=== PATIENT | male | born 1970 | race Caucasian/White ===

== ENCOUNTER 2019-07-11 19:59 | Inpatient (IN) | payer OTHER ==
[~2019-07-11] VITALS: Ht 182.9 cm; Wt 124.3 kg
[2019-07-11] MEDS ORDERED: DEXTROSE 50% SYRINGE 50 ML IV PRN ×2 (20:15→22:00)
[2019-07-11] MEDS ORDERED: HYDRALAZINE HCL 25 MG TAB PO PRN ×2 (20:15→22:00)
[2019-07-11] MEDS ORDERED: MORPHINE SULFATE INJ 4 MG/ML INJ 1ML IV PRN ×2 (20:30→22:00)
[2019-07-11 20:55] LABS: BASOPHILS # (AUTO) 0.1 (0.0-0.1); BASOPHILS % 0.7 % (0.0-1.0); EOSINOPHILS # (AUTO) 0.1 (0.0-0.4); EOSINOPHILS % 1.7 % (0.0-6.0); HEMATOCRIT 46.7 % (38.2-49.6); HEMOGLOBIN 16.3 g/dL (14.0-18.0); LYMPHOCYTES # (AUTO) 2.3 (1.0-3.2); LYMPHOCYTES % 32.6 % (18.0-39.1); MEAN CORPUSCULAR HEMOGLOBIN 31.7 pg (28-32); MEAN CORPUSCULAR HGB CONC 34.9 g/dL (31-35); MEAN CORPUSCULAR VOLUME 90.9 fL (81-99); MONOCYTES # (AUTO) 0.7 (0.2-0.8); NEUTROPHILS # (AUTO) 3.9 (2.1-6.9); NEUTROPHILS % 54.7 % (38.7-80.0); PLATELET COUNT 180 x10e3/uL (140-360); RED BLOOD COUNT 5.14 x10e6/uL (4.3-5.7)
[2019-07-11] MEDS ORDERED: INSULIN LISPRO 100 UNIT/1 ML 3ML VIAL SQ SCH (21:00)
[2019-07-11] MEDS ORDERED: HYDRALAZINE HCL 25 MG TAB ONE (21:00)
[2019-07-11 21:05] VITALS: BP 162/97
[2019-07-11 21:13] LABS: ALANINE AMINOTRANSFERASE 99 IU/L (0-55); ALBUMIN 3.9 g/dL (3.5-5.0); ALBUMIN/GLOBULIN RATIO 1.1 (0.8-2.0); ALKALINE PHOSPHATASE 102 IU/L (40-150); ANION GAP 14.8 mmol/L (8-16); BLOOD UREA NITROGEN 11 mg/dL (7-26); BUN/CREATININE RATIO 11 (6-25); CALCIUM 9.7 mg/dL (8.4-10.2); CARBON DIOXIDE 26 mmol/L (22-29); CHLORIDE 97 mmol/L (98-107); CREATININE, SERUM 0.98 mg/dL (0.72-1.25); EST GLOMERULAR FILTRATION RATE > 60 ML/MIN (60-); GLUCOSE 224 mg/dL (74-118); POTASSIUM 3.8 mmol/L (3.5-5.1); SODIUM 134 mmol/L (136-145)
[2019-07-11 21:14] LABS: CHOL/HDL RATIO 4.1 (3.9-4.7)
[2019-07-11 21:33] LABS: THYROID STIMULATING HORMONE 5.888 uIU/mL (0.350-4.940)
--- NOTE | 2019-07-11 21:35 | NUR ---
Patient received via stretcher from ER. AAO x 4. Admission history obtained. Initial physical assessment conducted. Patient had no complaints of pain. Respirations even and non-labored. Patient oriented to room, call light, visiting hours and plan of care. Fall precautions implemented. Patient instructed to call for assistance when needed. Call light within reach.
[2019-07-11 22:00] VITALS: BP 162/97
--- NOTE | 2019-07-11 22:15 | NUR ---
Patient off floor for CT/ABD/PEL
[2019-07-11] MEDS ORDERED: SODIUM CHLORIDE 0.9% 50ML 50 ML ONE (22:20)
[2019-07-11] MEDS ORDERED: IOPAMIDOL 370 MG/ML 200 ML INFUS..BTL INJ ONE (22:20)
[2019-07-11] MEDS ORDERED: HUMALOG100 UNIT/1 SQ (22:22)
[2019-07-11] MEDS ORDERED: AMBIEN10 MG PO (22:22)
[2019-07-11] MEDS: INSULIN LISPRO 100 UNIT/1 ML 3ML VIAL SQ SCH (22:24)
--- NOTE | 2019-07-11 22:36 | NUR ---
Patient back to floor from CT/ABD/PEL.
--- NOTE | 2019-07-11 23:08 | Diagnostic Imaging Report ---
EXAM: CT Abdomen and Pelvis WITHOUT and WITH contrast INDICATION: Abdominal pain, right mid back pain COMPARISON: None. TECHNIQUE: Abdomen and pelvis were scanned utilizing a multidetector helical scanner from the lung base to the pubic symphysis before and after administration of IV contrast. Coronal and sagittal reformations were obtained. Routine protocol was performed. Scan was performed when during portal venous phase. IV CONTRAST: 100 mL of Isovue 370 ORAL CONTRAST: None COMPLICATIONS: None RADIATION DOSE: Total DLP: And 1771 mGy*cm Estimated effective dose: (DLP x 0.015 x size factor) mSv CTDIvol has been reviewed. It is below the limits set by the Radiation Protocol Committee (RPC). Dose modulation, iterative reconstruction, and/or weight based adjustment of the mA/kV was utilized to reduce the radiation dose to as low as reasonably achievable. FINDINGS: LINES and TUBES: None. LOWER THORAX: Bibasilar subsegmental atelectasis. HEPATOBILIARY: Diffuse decreased hepatic attenuation No focal hepatic lesions. The liver is mildly enlarged measures 18.7 cm in craniocaudal dimension and the right midclavicular line. No biliary ductal dilation. GALLBLADDER: No radio-opaque stones or sludge. No wall thickening. SPLEEN: No splenomegaly. PANCREAS: No focal masses or ductal dilatation. ADRENALS: No adrenal nodules KIDNEYS/URETERS: Kidneys enhance symmetrically. No hydronephrosis. No cystic or solid mass lesions. No stones. GI TRACT: Mild wall thickening; slight edema in the gastric antrum. No abnormal distention or evidence of bowel obstruction. Intact surgical changes of sleeve gastrectomy. Appendix is normal. Peripherally calcified epiploic appendage along the sigmoid colon. (Series 3 image 65). PELVIC ORGANS/BLADDER: Unremarkable. LYMPH NODES: No lymphadenopathy. VESSELS: Unremarkable. PERITONEUM / RETROPERITONEUM: No free air or fluid. BONES: Degenerative changes in the spine hips and pelvis.. SOFT TISSUES: Calcified granulomas in the left gluteal subcutaneous adipose. Tiny fat-containing umbilical hernia. IMPRESSION: Findings suggestive of mild antral gastritis. Hepatomegaly with hepatic steatosis. Intact postsurgical changes of partial gastrectomy. Signed by: Roosevelt Gallegos DO on 07/11/2019 11:04 PM
[2019-07-12] VITALS (9 sets, daily range): BP systolic 106–148; BP diastolic 71–92
[2019-07-12] MEDS: ZOLPIDEM TARTRATE 10 MG TAB PO SCH (00:19)
[2019-07-12] MEDS: MORPHINE SULFATE 2 MG/ML SYR 1ML IV PRN ×4 (01:59→20:21)
[2019-07-12 05:59] LABS: CHOL/HDL RATIO 4.3 (3.9-4.7)
--- NOTE | 2019-07-12 07:00 | NUR ---
Shift report given to oncoming nurse.
--- NOTE | 2019-07-12 07:06 | NUR ---
Received patient lying in bed with eyes open. Respiration even and unlabored without SOB. Call light in reach.
[2019-07-12] MEDS: INSULIN LISPRO 100 UNIT/1 ML 3ML VIAL SQ SCH ×3 (08:07→20:20)
[2019-07-12] MEDS ORDERED: PANTOPRAZOLE 40 MG 10ML VIAL IV SCH ×2 (09:00)
[2019-07-12] MEDS ORDERED: INSULIN GLARGINE 100 UNITS/ML VIAL SQ ONE (09:30)
--- NOTE | 2019-07-12 14:25 | History and Physical ---
CHIEF COMPLAINT: Severe abdominal pain, nausea, and vomiting. HISTORY OF PRESENT ILLNESS: The patient is a 49-year-old obese male with uncontrolled diabetes. The patient's glycohemoglobin A1c of 11.9. The patient also having significant abdominal pain on the right side, not associated with cough, but more of a burning sensation and pain, worse when the patient eats. The patient had some pain for the past week, did not improve. The patient is now admitted for further evaluation and treatment. PAST MEDICAL HISTORY: Gastric sleeve, diabetes type 2 uncontrolled, hypertension, and obesity. PAST SURGICAL HISTORY: Gastric sleeve. SOCIAL HISTORY: The patient does not smoke or use alcohol. No regular drug. ALLERGIES: TO NO KNOWN ALLERGIES. HOME MEDICATIONS: None. PHYSICAL EXAMINATION: VITAL SIGNS: Temperature is 98, blood pressure 125/84, pulse is 80, and respirations 18. GENERAL: The patient is not in acute distress. He is awake. HEENT: Normocephalic and atraumatic. Pupils reactive. Anicteric. NECK: Supple grossly. PULMONARY: Clear. CARDIOVASCULAR: Regular rate and rhythm. ABDOMEN: Tenderness with some guarding, non-distention. EXTREMITIES: No cyanosis or edema. NEUROLOGIC: No gross focal deficit. LABORATORY DATA: Sodium 134, potassium 3.8, chloride 97, bicarb 26, BUN 11, creatinine 0.9, and glucose 224. WBC 7, hemoglobin 16, hematocrit 47, and platelets 180. CT scan of the abdomen and pelvis that was done showed that the patient has suggestive of antral gastritis. Hepatomegaly with hepatic steatosis. Intact postsurgical changes of partial gastrectomy. IMPRESSION: 1. Uncontrolled diabetes with glycohemoglobin A1c of 11.9. 2. Hypertensive urgency, much improved with medication. 3. Abdominal pain with multiple factors. First, the patient may have a nonfunctional gallbladder including his uncontrolled diabetes and possible neuropathy. 4. Possibility of gastroparesis inducing pain especially after eating. PLAN: Consultation with . Dr. Andre Clark for possible EGD. We will get a HIDA scan of the gallbladder and the gastric emptying test. The patient will need EGD whether in outpatient pending upon evaluation by Gastroenterology. MD EDITH Whitaker/ROLF /[id number]
[2019-07-12] MEDS ORDERED: INSULIN LISPRO 100 UNIT/1 ML 3ML VIAL SQ SCH (15:00)
--- NOTE | 2019-07-12 16:45 | NUR ---
Transported patient for HIDA scan at this time.
--- NOTE | 2019-07-12 17:10 | NUR ---
Report given to cage shift manager. Patient awake, alert. Respiration even and unlabored without SOB. Call light in reach.
--- NOTE | 2019-07-12 18:30 | NUR ---
Patient is back from HIDA scan. Respiration even and unlabored without SOB. Call light in reach
--- NOTE | 2019-07-12 19:18 | NUR ---
Report given to cnc machinist 2nd shift. Patient lying in bed with eyes open. Respiration even and unlabored without SOB. Call light in reach.
--- NOTE | 2019-07-12 19:23 | NUR ---
PT IS RESTING IN BED WITH SON AT BEDSIDE. RESPIRATION IS EVEN AND UNLABORED, NO DISTRESS NOTED. BED IN THE LOWEST POSITION, LOCKED, AND CALL LIGHT WITHIN REACH. WILL CONTINUE TO MONITOR.
--- NOTE | 2019-07-12 19:33 | Diagnostic Imaging Report ---
Hepatobiliary Scan with Gallbladder Ejection Fraction Clinical information: 49 M with RUQ abdominal pain and persistent vomiting x 3 weeks. Technique: Following intravenous administration of 6.2 millicuries of Tc-99m mebrofenin, dynamic images of the abdomen in the anterior projection were obtained through 60 minutes. Sincalide (CCK analog) 2.5 micrograms was administered intravenously over 30 minutes with additional imaging for determination of gallbladder ejection fraction. Discussion: Perfusion of the liver is normal. Extraction of tracer by the liver parenchyma is normal. Tracer appears promptly within the biliary tract. The gallbladder begins to fill by 6 minutes post injection of tracer and fills adequately. Tracer is seen in the small bowel during the sincalide infusion. The gallbladder ejection fraction with sincalide is 2% (normal greater than 40%). Impression: 1. Filling of the gallbladder excludes acute cystic duct obstruction/acute cholecystitis. 2. The decreased gallbladder ejection fraction of 2% supports the clinical diagnosis of chronic cholecystitis/gallbladder dyskinesia. Signed by: Dr. Judith Pierre M.D. on 07/12/2019 7:29 PM
[2019-07-13] MEDS: ZOLPIDEM TARTRATE 10 MG TAB PO SCH ×2 (00:12→23:18)
--- NOTE | 2019-07-13 00:52 | Consultation ---
DATE OF CONSULTATION: 07/12/2019 GI consultation. CONSULTING PHYSICIAN: Christopher Carmona M.D. REASON FOR CONSULT: Intermittently persistent right upper quadrant and mid epigastric pain for more than a week. HISTORY OF PRESENTING ILLNESS: This 49-year-old white male with a past medical history of morbid obesity status post gastric sleeve surgery done by Dr. Crowe, in [facility] in 2012. This resulted him to have at least 40-60 pounds weight loss. The patient also has some cervical disk disease. He has had cervical fusion in the past. The patient is suffering from chronic back pain. He takes ibuprofen 4-5 pills 3-4 times daily for many months. He is now coming with intermittently persistent midepigastric and right upper quadrant pain. There is a concern for a nonfunctional gallbladder. The patient underwent a HIDA scan today. Result is pending. Denies any lower GI symptoms. No associated nausea or vomiting. No weight loss. REVIEW OF SYSTEMS: Twelve point system reviewed, symptomatology is limited to GI system. PAST MEDICAL HISTORY: Type 2 diabetes, hypertension, obesity. PAST SURGICAL HISTORY: Gastric sleeve surgery. FAMILY HISTORY: Negative for any GI or ELECTRICIAN CONTROL EQUIPMENT malignancies. SOCIAL HISTORY: No smoking, alcohol, or any illicit drug use. ALLERGIES: NONE. HOME MEDICATION: Insulin lispro and zolpidem (Ambien) 10 mg at bedtime as needed. PHYSICAL EXAMINATION: VITAL SIGNS: Temperature 96.3, pulse 71, respirations 20, blood pressure 106/71, oxygen saturation 95% on room air. GENERAL: Obese body habitus, not in any acute distress. HEENT: Oral mucosa is moist. Anicteric sclerae. CVS: S1 and S2 regular. LUNGS: Bilaterally grossly clear. ABDOMEN: Obese, soft. Palpable midepigastric as well as right upper quadrant tenderness. Ring sign is positive. No palpable mass or hernia. Bowel sounds present. EXTREMITIES: Warm, no leg edema. LABORATORY DATA: CT of the abdomen and pelvis with and without contrast showed mild antral gastritis. Hepatomegaly with hepatic steatosis. Intact postsurgical changes of gastric sleeve. No other bowel pathology. No free fluid. No abnormal adenopathy. WBC 7.09, hemoglobin 16.3, hematocrit 46.7, MCV 90.9, platelet count 180. Sodium 134, potassium 3.8, chloride 97, bicarb 26, BUN 11, creatinine 0.98, glucose 224. Liver enzymes showed a total bilirubin 0.8, AST 73, ALT 99, alkaline phosphatase 102. IMPRESSION: 1. Mid epigastric pain in the setting of chronic use of NSAIDs. This is concerning for, as CT is also showing antral wall thickening. He has very high risk of having gastric ulcer. 2. Diffuse attenuation of the liver on CT with elevated liver enzymes is highly suspicious for nonalcoholic fatty liver. It is also likely patient may be having nonalcoholic steatohepatitis. Acute viral hepatitis serology needs to be done to exclude any hepatitis B or C. Ring sign is positive on clinical exam, there is a concern for acalculous cholecystitis. PLAN: PPI daily, no NSAIDs. Surgery consults. N.p.o. past midnight, upper endoscopy tomorrow. Thank you Dr. Carmona, for allowing me to participate in the care of this patient. Gutierrez Amaya MD SA/ROLF /[id number]
[2019-07-13] MEDS ORDERED: DEXTROSE 50% SYRINGE 50 ML IV PRN (02:30)
[2019-07-13 04:00] VITALS: BP 121/84
[2019-07-13 06:13] LABS: FREE THYROXINE INDEX 2.4815 (1.4-3.8); THYROID STIMULATING HORMONE 2.132 uIU/mL (0.350-4.940)
[2019-07-13] MEDS: INSULIN LISPRO 100 UNIT/1 ML 3ML VIAL SQ SCH ×7 (07:30→21:00)
[2019-07-13 07:59] VITALS: BP 126/88
--- NOTE | 2019-07-13 09:00 | NUR ---
pt a resp even and unlabored, no distress noted, pt able to make needs known, no c/o pain at this time, call light in reach
[2019-07-13] MEDS: PANTOPRAZOLE 40 MG 10ML VIAL IV SCH ×2 (09:09→17:17)
--- NOTE | 2019-07-13 09:55 | Consultation ---
DATE OF CONSULTATION: 07/12/2019 This is an endocrine consult, coverage for Dr. Vargas. REASON FOR REFERRAL: Diabetes. HISTORY OF PRESENT ILLNESS: Mr. Arredondo is a 49-year-old gentleman with diabetes. The patient had diabetes diagnosed long ago. The patient underwent gastric sleevectomy previously where its peak body weight was 400 pounds and he had maximal loss of 205 pounds where he was actually removed off the insulin at that time. Currently, he is at 270 pounds. He had good functional recovery after the sleeve surgery without significant problems with food intake. Currently, the patient eats once a day and sometimes twice a day and he eats equivalent of a hamburger and . CURRENT MEDICATIONS: Humalog 20 units before eating one to twice a day. Easy check his glucose finger sticks once a day. PAST MEDICAL HISTORY: Gastric sleevectomy, diabetes type 2, uncontrolled, hypertension, and obesity. ALLERGIES: NOTED. NO KNOWN DRUG ALLERGIES. SOCIAL HISTORY: No smoking, no drinking, and no drugs. FAMILY HISTORY: Noncontributory. REVIEW OF SYSTEMS: HEMATOLOGIC: No bleeding hematologically. NEUROLOGIC: No seizures. PHYSICAL EXAMINATION: VITAL SIGNS: Noted and reviewed per the chart record. GENERAL: In no acute distress. He is obese. He is otherwise alert and oriented x3. No gross focal neurologic deficits. LABORATORY DATA: Labs include 0.98 creatinine. Hemoglobin A1c 11.9%. TSH 5.88 yesterday. IMPRESSION AND PLAN: 1. Diabetes, uncontrolled. 2. Admit for symptomatic GI process, possible gastric ulcer. 3. Elevated TSH, . 4. History of gastric sleevectomy. 5. Hypertension. 6. Obesity. Check full thyroid function testing. for endoscopy by GI, we will only cautiously adjust insulin. Followup diet. Sliding scale insulin. Call to return in a couple days. Thank you very much, Dr. Carmona. MD JOSH Lubin/MODL /[id number]
[2019-07-13 10:28] VITALS: BP 126/88
[2019-07-13 15:13] VITALS: BP 123/87
--- NOTE | 2019-07-13 19:15 | NUR ---
report given to to oncoming nurse.
--- NOTE | 2019-07-13 19:15 | NUR ---
patient received awake, alert, lying quietly in bed. no c/o pain noted. pm assessment complete. patient instructed to call for assistance when needed.
[2019-07-13 19:30] VITALS: BP 136/100
--- NOTE | 2019-07-13 20:09 | Diagnostic Imaging Report ---
Solid-phase gastric emptying study Reason for examination: R10.13 Epigastric pain; R11.2 Nausea and vomiting The protocol used for this study is based on the Consensus Recommendations for Gastric Scintigraphy by the [place] [employer]gastro[employer]ility Society and the Society of Nuclear Medicine. Clinical information: The patient is diabetic; blood sugar at the time of beginning the study was 193 mg/dL. The patient has not had gastric sleeve surgery in 2012. The patient is not on any medications expected to affect gastric motility. The patient has been fasting for at least 6 hours prior to this exam. Radiopharmaceutical: Tc-99m sulfur colloid 1 mCi Report: The radiopharmaceutical was added to Ensure Enlive 8 ounces. The patient took the meal orally without difficulty. Images were obtained of the abdomen in the anterior and posterior projections at 10 minutes post the meal and at 1, 2 and 3 hours. Uptake was determined from the geometric mean of the anterior and posterior counts and the counts were corrected for decay of the radiolabel. The percent gastric retention of the labeled meal at: 1 hour was 73% (normal 30-90%) 2 hours was 28% (normal <60%) 3 hours was 4% (normal <30%) 4 hour measurement not obtained because gastric retention was less than 10% at 3 hours. Impression: The pattern of gastric emptying is normal. The findings do not support the clinical diagnosis of gastroparesis. Signed by: Dr. Judith Pierre M.D. on 07/13/2019 8:06 PM
[2019-07-13 20:31] VITALS: BP 136/100
[2019-07-14] VITALS (8 sets, daily range): BP systolic 103–134; BP diastolic 57–89
--- NOTE | 2019-07-14 04:06 | NUR ---
Endocrine, coverage for Dr Vargas Patient not in room when i passed by glucose 193-209 going for nuclear medicine scans x 2 today. no regular diet Rec: continue lantus continue increased dose of coverage insulin
--- NOTE | 2019-07-14 07:00 | NUR ---
BEDSIDE SHIFT REPORT RECEIVED FROM JEFF CATES. PT DENIES NEEDS AT THIS TIME.
[2019-07-14] MEDS: INSULIN LISPRO 100 UNIT/1 ML 3ML VIAL SQ SCH ×7 (07:30→21:00)
--- NOTE | 2019-07-14 07:45 | NUR ---
PT OFF THE FLOOR TO ENDO.
[2019-07-14] MEDS ORDERED: INSULIN GLARGINE 100 UNITS/ML VIAL SQ ONE (08:00)
[2019-07-14] MEDS: PANTOPRAZOLE 40 MG 10ML VIAL IV SCH ×2 (08:50→17:15)
[2019-07-14] MEDS: MORPHINE SULFATE 2 MG/ML SYR 1ML IV PRN (10:14)
--- NOTE | 2019-07-14 10:23 | NUR ---
SPOKE TO DR. PANTOJA PER DR. NASH. HE WILL BE IN TO SEE THE PT TODAY.
--- NOTE | 2019-07-14 14:05 | NUR ---
Visit made by the Spiritual Care Department Lizzy Bolivar. PV provided pastoral presence, hospitality, and supportive listening. Pastoral Visitor informed pt/family of the scope of Director Payment Services and availability. CALLUM Bautistalain Spiritual Care Department O: [phone]
--- NOTE | 2019-07-14 18:00 | NUR ---
PT'S BG DISCUSSED WITH PT AND PT'S SPOUSE. PT FEELS MORE COMFORTABLE NOT GETTING INSULIN SINCE HE IS NOT EATING BECAUSE OF THE PAIN AND FEELS HE WILL BE NPO FOR A PROCEDURE TOMORROW.
[2019-07-14] MEDS ORDERED: PROPOFOL IV EMULSION 10 MG/ML 20 ML VIAL ONE (18:12)
[2019-07-14] MEDS ORDERED: FENTANYL CITRATE/PF 100MCG/2 ML INJ ONE (19:17)
--- NOTE | 2019-07-14 19:25 | NUR ---
Patient received lying in bed. AAO x 4. Son at bedside. Patient had no complaints of pain. No signs of respiratory distress. Fall precautions implemented. Patient instructed to call for assistance when needed. Call light within reach.
--- NOTE | 2019-07-14 20:05 | NUR ---
Patient refused insulin administration stating he has been on a clear liquid diet for 2 days and would be NPO at midnight.
[2019-07-14] MEDS: INSULIN GLARGINE 100 UNITS/ML VIAL SQ SCH (21:00)
--- NOTE | 2019-07-14 23:50 | NUR ---
Patient informed of upcoming procedure (Laparoscopic possible open cholecystectomy) and NPO status at midnight. Patient verbalized understanding and voluntarily signed "Disclosure and Consent " form.
[2019-07-15] VITALS (9 sets, daily range): BP systolic 121–160; BP diastolic 75–93
--- NOTE | 2019-07-15 00:52 | Consultation ---
DATE OF CONSULTATION: 07/14/2019 CHIEF COMPLAINT: Abdominal pain. HISTORY OF PRESENT ILLNESS: The patient is a 49-year-old male with recurrent epigastric right upper quadrant abdominal pain with nausea postprandially for several months. The patient has had extensive workup with HIDA scan showing biliary dyskinesia. PAST MEDICAL HISTORY: Significant for morbid obesity, hypertension, diabetes. PAST SURGICAL HISTORY: Positive for sleeve gastrectomy, bilateral shoulder repair, and knee repair. ALLERGIES: THE PATIENT HAS NO DRUG ALLERGIES. SOCIAL HISTORY: He does not smoke or drink alcohol. REVIEW OF SYSTEMS: He denies chest pain or shortness of breath. PHYSICAL EXAMINATION: VITAL SIGNS: The patient's vital signs stable, afebrile. GENERAL: He is awake, alert, in mild discomfort. HEENT: Sclera anicteric. NECK: Supple. LUNGS: Clear. HEART: Regular rate and rhythm. ABDOMEN: Soft with mild guarding in the right upper quadrant without rebound tenderness. EXTREMITIES: Without cyanosis or edema. LABORATORY DATA: The patient's white cell count is 7, hemoglobin is 16, platelet count 180. Creatinine of 0.9. Liver function tests within normal limits. HIDA scan showed ejection fraction of only 2%. CT of the abdomen show postsurgical changes of partial gastrectomy. ASSESSMENT: Biliary dyskinesia/cholecystitis. PLAN: Laparoscopic cholecystectomy. Attendant risks discussed with the patient in detail. MD VIANCA Arzate/ROLF /[id number]
--- NOTE | 2019-07-15 07:00 | NUR ---
Patient resting comfortably. Walking rounds done. Shift report given to oncoming nurse regarding patient's status.
--- NOTE | 2019-07-15 07:00 | NUR ---
BEDSIDE SHIFT REPORT RECEIVED FROM THE PLANT OPERATIONS VICE PRESIDENT RN. EDUCATED PT ABOUT FALL PRECAUTIONS. CALL LIGHT WITH IN EASY REACH. INSTRUCTED PT TO USE CALL LIGHT FOR ALL THE NEEDS. PT VERBALIZED UNDERSTANDING. BED IS LOW AND LOCKED. FAMILY AT BEDSIDE. PT DENIED FURTHER NEEDS.
[2019-07-15] MEDS: INSULIN LISPRO 100 UNIT/1 ML 3ML VIAL SQ SCH ×7 (07:30→21:00)
[2019-07-15] MEDS: PANTOPRAZOLE 40 MG 10ML VIAL IV SCH ×2 (08:31→16:55)
--- NOTE | 2019-07-15 09:27 | NUR ---
PT OFF UNIT FOR PROCEDURE IN SAFE CONDITION.
--- NOTE | 2019-07-15 10:02 | NUR ---
PT IS BACK TO UNIT. PROCEDURE ON HOLD. RESCHEDULING THE PROCEDURE FOR A LATER TIME PER OR.
--- NOTE | 2019-07-15 11:20 | NUR ---
PT OFF UNIT FOR PROCEDURE IN SAFE CONDITION.
[2019-07-15] MEDS ORDERED: BUPIVACAINE 0.25%/EPI 30ML SDV INJ ONE (12:03)
[2019-07-15] MEDS ORDERED: CEFOXITIN 1GM/ D5W 50ML 100 ML IV ONE (12:12)
[2019-07-15] MEDS ORDERED: FENTANYL CITRATE/PF 100MCG/2 ML INJ ONE ×2 (13:53→19:21)
--- NOTE | 2019-07-15 14:29 | NUR ---
PT IS BACK TO THE UNIT AFTER PROCEDURE. DENIES NEEDS AT THIS TIME.
[2019-07-15] MEDS: MORPHINE SULFATE INJ 4 MG/ML INJ 1ML IV PRN ×2 (16:00→21:05)
[2019-07-15] MEDS ORDERED: DEXAMETHASONE SOD PHOS INJ 4 MG/ML VIAL ONE (18:33)
[2019-07-15] MEDS ORDERED: PROPOFOL IV EMULSION 10 MG/ML 20 ML VIAL ONE (18:33)
[2019-07-15] MEDS ORDERED: ONDANSETRON HCL INJ 2MG/ML 2ML 2 MG/ML VIAL ONE (18:33)
[2019-07-15] MEDS ORDERED: KETOROLAC TROMETHAMINE 30 MG/ML VIAL ONE (18:33)
[2019-07-15] MEDS ORDERED: SUCCINYLCHOLINE 200 MG/10 ML SYR ONE (18:33)
[2019-07-15] MEDS ORDERED: SEVOFLURANE INHAL SOLN 250 ML PEN BTL ONE (18:33)
[2019-07-15] MEDS ORDERED: LIDOCAINE HCL 2% LOCAL INJ 5 ML SDV VIAL INJ ONE (18:33)
[2019-07-15] MEDS ORDERED: ROCURONIUM BROMIDE 10 MG/ML 5ML VIAL ONE (18:33)
--- NOTE | 2019-07-15 18:49 | NUR ---
BEDSIDE SHIFT REPORT GIVEN TO THE SENIOR ACCOUNTS PAYABLE CLERK RN. PT DENIED FURTHER NEEDS.
--- NOTE | 2019-07-15 19:15 | NUR ---
Completed bedside report with morning nurse. Pt alert and orient to name. Lying in bed HOB 90 degrees. Denies pain at this time. Call light within reach. Bed low and locked.
[2019-07-15] MEDS ORDERED: MIDAZOLAM HCL 2 MG/2 ML VIAL ONE (19:21)
--- NOTE | 2019-07-15 20:03 | Operative Report ---
DATE OF PROCEDURE: 07/15/2019 SURGEON: José Luis Whipple MD PREOPERATIVE DIAGNOSIS: Cholecystitis. POSTOPERATIVE DIAGNOSIS: Cholecystitis. OPERATIVE PROCEDURE: Laparoscopic cholecystectomy. MACHINED PARTS QUALITY INSPECTOR: None. ANESTHESIA: General, Dr. Hook. INDICATION: A 49-year-old male with a history of chronic intermittent abdominal pain and nausea and vomiting with HIDA scan showing ejection fraction of 2%. The patient consented for laparoscopic cholecystectomy. Attendant risks discussed. PROCEDURE FINDINGS: Chronic cholecystitis. DESCRIPTION OF PROCEDURE: The patient was brought to the OR and intubated. The abdomen was prepped and draped in a sterile fashion. An infraumbilical incision was made and a 12 mm port inserted. Insufflation began. Under direct vision, other ports sites placed in midepigastric and right upper quadrant. Gallbladder chronically inflamed and distended. Fundus retracted in cephalad direction. The neck of the gallbladder retracted laterally. With blunt and sharp dissection, cystic artery and cystic duct isolated. The junction of common bile duct was noted before triple clipping the cystic artery and cystic duct and divided them between clips. Gallbladder detached from the liver with cautery and taken out through umbilical port site. Operative field irrigated. Hemostasis achieved. All ports removed under direct vision. Fascia closure with 0 Vicryl. Skin then closed with subcuticular stitch. The patient was extubated and transported to recovery room. BLOOD LOSS: 10 mL. José Luis Whipple MD DNL/MODL /[id number]
[2019-07-15] MEDS: INSULIN GLARGINE 100 UNITS/ML VIAL SQ SCH (21:00)
[2019-07-15] MEDS: ZOLPIDEM TARTRATE 10 MG TAB PO SCH (23:37)
[2019-07-16 05:25] VITALS: BP 110/63
--- NOTE | 2019-07-16 07:00 | NUR ---
BEDSIDE SHIFT REPORT RECEIVED FROM THE PIECE JOBBER RN. EDUCATED PT ABOUT FALL PRECAUTIONS. CALL LIGHT WITH IN EASY REACH. INSTRUCTED PT TO USE CALL LIGHT FOR ALL THE NEEDS. PT VERBALIZED UNDERSTANDING. BED IS LOW AND LOCKED. SIDE RAILS X2. PT DENIES NEEDS AT THIS TIME.
[2019-07-16 08:00] VITALS: BP 115/66
[2019-07-16] MEDS: INSULIN LISPRO 100 UNIT/1 ML 3ML VIAL SQ SCH ×4 (08:15→12:05)
[2019-07-16] MEDS: PANTOPRAZOLE 40 MG 10ML VIAL IV SCH (08:26)
[2019-07-16 08:45] VITALS: BP 115/66
[2019-07-16 12:00] VITALS: BP 126/86
[2019-07-16] MEDS ORDERED: novolo (14:45)
[2019-07-16] MEDS ORDERED: OMEPRAZOLE40 MG (14:46)
[2019-07-16] MEDS ORDERED: HUMALOG KWIK (14:48)
[2019-07-16] MEDS ORDERED: basaglar (14:48)
[2019-07-16] MEDS ORDERED: novofine (14:53)
[2019-07-16] MEDS ORDERED: [UNRECOGNIZED DRUG - OTHER] (14:55)
--- NOTE | 2019-07-16 15:00 | NUR ---
THERON TO D/C PT PER DR. NASH AND DR. ZAYAS.
--- NOTE | 2019-07-16 15:05 | NUR ---
PT DISCHARGED HOME SAFELY WITH HIS SON. PT ESCORTED TO THE PRIVATE CAR AT THE FRONT ENTRANCE. IV REMOVED. TIP INTACT. DRESSING APPLIED. RX GIVEN. PT DENIED FURTHER NEEDS.
[2019-07-16] MEDS ORDERED: INSULIN LISPRO 100 UNIT/1 ML 3ML VIAL SQ SCH (16:30)
[2019-07-16] MEDS ORDERED: INSULIN GLARGINE 100 UNITS/ML VIAL SQ SCH (21:00)
--- NOTE | 2019-07-17 12:35 | Consultation ---
DATE OF CONSULTATION: 07/14/2019 Endocrine Consultation The patient of Dr. Carmona. Thank you very much for referring this patient. HISTORY OF PRESENT ILLNESS: This is a 49-year-old white male gentleman, who was referred to me for evaluation of uncontrolled diabetes mellitus. The patient reportedly is a known diabetic for almost 6 to 8 years. He had a stomach stapling done about 6 years back. Following that, his blood sugars were doing better. He has been taking metformin at home. The patient came to the hospital with history of right upper quadrant pain. He was found to have chronic cholecystitis. The patient's blood sugars have been fluctuating and he takes Basaglar about 20 units at bedtime and Humalog about 15 to 20 with each meal depending upon the blood sugars. His blood sugars have been running high during the hospital stay and his hemoglobin A1c is 11.8. The patient also has history of hypertension. FAMILY HISTORY: Diabetes mellitus. PHYSICAL EXAMINATION: GENERAL: Today, the patient is alert, awake, little bit apprehensive. He is moderately overweight. VITAL SIGNS: His heart rate is around 78 and blood pressure 140/80 mmHg. HEENT: Essentially unremarkable. Thyroid is palpable. Clinically, he is near euthyroid. CHEST: Bilateral vesicular breathing. He has mild bronchospasm. CARDIOVASCULAR: Both first and second heart sounds. There is no third or fourth sounds. There is ejection systolic murmur grade 2/6. The patient has evidence of diabetic sensorimotor neuropathy in both lower extremities. CLINICAL IMPRESSION: Diabetes mellitus type 2, uncontrolled with complications, chronic right upper quadrant pain, chronic cholecystitis, hypertension, and history of obesity. PLAN: At this time is to start him on the Lantus insulin 30 units at bedtime and Humalog with each meal depending upon the blood sugars. We will also do a thyroid function test. Thanks again for referring this patient. I will be following this patient with you. MD ANALI Barbosa/ROLF /[id number]
== END 2019-07-16 15:16 | disposition home or self-care (01) | DRG 419 ==
LOC: EDBD 19:59 → ER 19:59 → ERHOLD 20:12 → UNDOADMOB 20:12 → MED/SURG2 21:09 → OBSVTOIN 07-13 10:07 → MED/SURG2 07-13 17:02
PROVIDERS: ADMIT Internal Medicine; ATTEND Internal Medicine
PROC: 0DB98ZX Excision of Duodenum, Via Natural or Artificial Opening Endoscopic, Diagnostic (ICD-10-PCS; 2019-07-14)
PROC: 0DB78ZX Excision of Stomach, Pylorus, Via Natural or Artificial Opening Endoscopic, Diagnostic (ICD-10-PCS; 2019-07-14)
PROC: 0FT44ZZ Resection of Gallbladder, Percutaneous Endoscopic Approach (ICD-10-PCS; principal; 2019-07-15 10:00)
DX: K81.1 Chronic cholecystitis (principal); K82.8 Other specified diseases of gallbladder; E11.65 Type 2 diabetes mellitus with hyperglycemia; R10.11 Right upper quadrant pain; E66.9 Obesity, unspecified; I16.0 Hypertensive urgency; E11.43 Type 2 diabetes mellitus with diabetic autonomic (poly)neuropathy; K31.84 Gastroparesis; Z98.84 Bariatric surgery status; R10.13 Epigastric pain; K76.0 Fatty (change of) liver, not elsewhere classified; Z68.37 Body mass index [BMI] 37.0-37.9, adult; K29.70 Gastritis, unspecified, without bleeding; Z79.4 Long term (current) use of insulin; I10 Essential (primary) hypertension; E86.0 Dehydration
CPT/HCPCS: 36415; 43239; 74178; 78227; 78264; 80053; 80061; 82948; 83036; 84436; 84443; 84479; 85025; 88304; 88305; 88312; 93005; 99284; A9537; A9541; G0378; J1100; J1815; J1885; J2001; J2250; J2270; J2405; J3010; Q9967